=== PATIENT | male | born 1970 | race Caucasian/White ===

== ENCOUNTER 2019-02-13 11:39 | Inpatient (IN) | payer OTHER ==
[~2019-02-13] VITALS: Ht 175.3 cm; Wt 77.1 kg
[2019-02-13 11:41] VITALS: BP 135/75
--- NOTE | 2019-02-13 11:41 | NUR ---
Pt placed in bed 7 by EMS.
--- NOTE | 2019-02-13 12:00 | NUR ---
jacque from home for evaluation of right hip pain radiating down leg since yesterday worsening today, denies trauma hx leukemia
[2019-02-13] MEDS ORDERED: MORPHINE SULFATE 4 MG/ML SYR IVP ONE (12:20)
[2019-02-13] MEDS ORDERED: NACL 0.9% 1,000 ML IV ONE (12:20)
[2019-02-13] MEDS ORDERED: NACL 0.9% 1,000 ML IV SCH (12:20)
[2019-02-13] MEDS ORDERED: ONDANSETRON 4 MG/2 ML VIAL IVP ONE (12:20)
--- NOTE | 2019-02-13 12:45 | NUR ---
Patient taken to CT via gurney.
--- NOTE | 2019-02-13 12:53 | NUR ---
Aron clifton in [facility] - 02/13/19 at 1253 by [facility] Patient being evaluated by physician at bedside.
--- NOTE | 2019-02-13 12:53 | NUR ---
Patient returned from CT.
[2019-02-13 13:14] LABS: BASOPHILS % (AUTO) 0.8 % (0.0-2.0); EOSINOPHILS # (AUTO) 0.1 K/uL (0-0.4); EOSINOPHILS % (AUTO) 1.4 % (0.0-4.0); HEMATOCRIT 43.6 % (36-52); HEMOGLOBIN 14.6 g/dL (12.0-18.0); LYMPHOCYTES # (AUTO) 1.1 K/uL (2.0-11.5); MEAN CORPUSCULAR HEMOGLOBIN 33 pg (27-31); MEAN CORPUSCULAR HGB CONC 33 g/dL (33-37); MEAN CORPUSCULAR VOLUME 97.3 fL (80-94); MONOCYTES # (AUTO) 0.4 K/uL (0.8-1.0); MONOCYTES % (AUTO) 8.2 % (1.7-9.3); NEUTROPHILS # (AUTO) 3.3 K/uL (1.8-7.7); NEUTROPHILS % (AUTO) 66.6 % (42.2-75.2); PLATELET COUNT (AUTO) 90 K/uL (140-450); RED BLOOD CELL COUNT(AUTO) 4.48 MIL/uL (4.20-6.10); RED CELL DISTRIBUTION WIDTH 16.4 % (11.6-13.7); WHITE BLOOD COUNT (AUTO) 4.9 K/uL (4.8-10.8)
[2019-02-13 13:28] LABS: PROTHROMBIN TIME 9.3 secs (10.8-13.4)
[2019-02-13 13:40] LABS: ANION GAP 13.3 (8-16); CARBON DIOXIDE 27.8 mmol/L (21-32); CHLORIDE 103 mmol/L (98-107); CREATININE 0.7 mg/dL (0.7-1.3); GFR ARICAN-AMERICAN 155 mL/min (>90); GLUCOSE 121 mg/dL (74-106); POTASSIUM 4.1 mmol/L (3.5-5.1); SODIUM SERUM 140 mmol/L (136-145); UREA NITROGEN, BLOOD 8 mg/dL (7-18)
[2019-02-13 13:53] LABS: D-DIMER < 100 ng/ml (0-400)
[2019-02-13 13:54] LABS: ALBUMIN 3.2 g/dL (3.4-5.0); ASPARTATE AMINOTRANSFERASE 67 U/L (15-37); TOTAL BILIRUBIN 3.1 mg/dL (0.0-1.0); URIC ACID 4.2 mg/dL (2.6-7.2)
[2019-02-13 13:55] LABS: AMYLASE 26 U/L (25-115); LIPASE 86 U/L (73-393); MAGNESIUM 1.8 mg/dL (1.8-2.4)
[2019-02-13] MEDS: NACL 0.9% 1,000 ML IV SCH (15:07)
[2019-02-13] MEDS ORDERED: ALBUTEROL 0.083% 2.5 MG/3 ML NEBU IH PRN (15:10)
[2019-02-13] MEDS ORDERED: ONDANSETRON 4 MG/2 ML VIAL IVP PRN (15:10)
[2019-02-13] MEDS ORDERED: MORPHINE SULFATE 2 MG/ML SYR IVP PRN (15:10)
[2019-02-13] MEDS ORDERED: MSCON30 PO (15:49)
[2019-02-13] MEDS ORDERED: HYDR2TAB6 PO (15:49)
--- NOTE | 2019-02-13 16:05 | NUR ---
PT ARRIVED ON THE UNIT VIA GURNEY. PT APPEARS STABLE AND IN NO APPARENT DISTRESS. VITALS TAKEN VITALS ARE WITHIN NORMAL LIMITS IVF IS RUNNING AT 100ML/HR. IV SITE IS PATENT AND SHOWS NO SIGNS ON INFLAMMATION OR INFILTRATION. ALL SAFETY MEASURES ARE IN PLACE, WILL CONTINUE TO MONITOR.
--- NOTE | 2019-02-13 16:06 | NUR ---
Patient Admited to telemetry Room 119A. Belongings list completed. Report to HAN Stephen. Pt in stable condition; transfer of care at this time.
[2019-02-13] MEDS: MORPHINE SULFATE 4 MG/ML SYR IVP PRN (16:24)
[2019-02-13 17:09] VITALS: BP 136/86
[2019-02-13] MEDS: LORazepam 2 MG/ML VIAL IVP PRN (18:26)
--- NOTE | 2019-02-13 18:27 | NUR ---
ATIVAN ADMINISTERED PT STATED HES IN ALOT OF PAIN AND THE 4MG MORPHINE WASNT WORKING PT APPEARED VERY RESTLESS AND ANXIOUS. WILL CONTINUE TO MONITOR
--- NOTE | 2019-02-13 19:05 | NUR ---
ENDORSED PT TO PM RN PT APPEARS STABLE AND IN NO APPARENT DISTRESS. ALL SAFTY MEASURES ARE IN PLACE
--- NOTE | 2019-02-13 19:20 | NUR ---
REPORT RECEIVED FROM AM NURSE AT BEDSIDE. PT IN STABLE CONDITION. AAOX4. INTRODUCED SELF TO PT. BOARD UPDATED. NO COMPLAINTS OF PAIN. NO SOB. AFEBRILE. PT IS AMBULATORY. IV SITE L FA 20G RUNNING NS@70ML/HR PATENT AND INTACT. SKIN WARM, DRY, AND INTACT WITH NO OPEN WOUNDS. BED LOCKED IN LOW POSITION. CALL MACIAS WITHIN REACH. SAFETY PRECAUTION IN PLACE. ALL NEEDS MET AT THIS TIME.
[2019-02-13 20:00] VITALS: BP 144/92
[2019-02-13] MEDS: metroNIDAZOLE 500 MG/NS PREMIX 100 ML IV SCH (20:29)
--- NOTE | 2019-02-13 20:29 | NUR ---
REINA HUNG AND RUNNING. PT TOLERATING WELL.
--- NOTE | 2019-02-13 21:45 | NUR ---
PT SLEEPING COMFORTABLY IN BED. NO S/S OF DISTRESS. WILL CONTINUE TO MONITOR.
--- NOTE | 2019-02-13 23:00 | NUR ---
PT SLEEPING COMFORTABLY IN BED. NO S/S OF DISTRESS NOTED. NO COMPLAINTS OF PAIN. NO SOB. AFEBRILE. WILL CONTINUE TO MONITOR.
[2019-02-14] VITALS: BP 139/87
[2019-02-14] MEDS: MORPHINE SULFATE 4 MG/ML SYR IVP PRN ×6 (00:28→21:37)
--- NOTE | 2019-02-14 00:28 | NUR ---
MORPHINE GIVEN FOR 7/10 PAIN. PT TOLERATED WELL.
--- NOTE | 2019-02-14 02:00 | NUR ---
PT SLEEPING COMFORTABLY IN BED. NO S/S OF DISTRESS NOTED. RESPIRATIONS EVEN, UNLABORED, AND WNL. WILL CONTINUE TO MONITOR.
[2019-02-14] MEDS: NACL 0.9% 1,000 ML IV SCH ×2 (03:15→19:43)
[2019-02-14 04:00] VITALS: BP 141/81
[2019-02-14] MEDS: metroNIDAZOLE 500 MG/NS PREMIX 100 ML IV SCH ×3 (04:05→20:27)
--- NOTE | 2019-02-14 04:05 | NUR ---
REINA HUNG AND RUNNING. PT TOLERATING WELL.
--- NOTE | 2019-02-14 04:08 | NUR ---
MORPHINE GIVEN FOR 8/10 HIP PAIN. PT TOLERATED WELL.
--- NOTE | 2019-02-14 05:45 | NUR ---
PT AWAKE AND ALERT IN BED. NO S/S OF DISTRESS NOTED. RESPIRATIONS EVEN, UNLABORED, AND WNL. WILL CONTINUE TO MONITOR.
[2019-02-14 05:56] LABS: BASOPHILS % (AUTO) 0.5 % (0.0-2.0); EOSINOPHILS % (AUTO) 0.9 % (0.0-4.0); HEMATOCRIT 41.1 % (36-52); HEMOGLOBIN 13.8 g/dL (12.0-18.0); LYMPHOCYTES % (AUTO) 25.7 % (20.5-51.1); MEAN CORPUSCULAR HEMOGLOBIN 33 pg (27-31); MEAN CORPUSCULAR HGB CONC 34 g/dL (33-37); MEAN CORPUSCULAR VOLUME 97.1 fL (80-94); MONOCYTES # (AUTO) 0.4 K/uL (0.8-1.0); MONOCYTES % (AUTO) 8.8 % (1.7-9.3); NEUTROPHILS # (AUTO) 2.6 K/uL (1.8-7.7); NEUTROPHILS % (AUTO) 64.1 % (42.2-75.2); RED BLOOD CELL COUNT(AUTO) 4.23 MIL/uL (4.20-6.10); RED CELL DISTRIBUTION WIDTH 16.4 % (11.6-13.7)
[2019-02-14 06:19] LABS: PLATELET COUNT (AUTO) 76 K/uL (140-450)
[2019-02-14 06:41] LABS: ALBUMIN 2.9 g/dL (3.4-5.0); ANION GAP 9.4 (8-16); CARBON DIOXIDE 29.7 mmol/L (21-32); CREATININE 0.7 mg/dL (0.7-1.3); POTASSIUM 4.1 mmol/L (3.5-5.1); TOTAL BILIRUBIN 2.8 mg/dL (0.0-1.0)
--- NOTE | 2019-02-14 07:26 | NUR ---
REPORT GIVEN TO AM NURSE AT BEDSIDE. PT IN STABLE CONDITION.
--- NOTE | 2019-02-14 07:45 | NUR ---
RECEIVED HAND OFF REPORT FROM HOT DIP PLATING SUPERVISOR NURSE PT IS ASLEEP IN BED NOTABLE CHEST RISE AND FALL ALL SAFETY MEASURES ARE IN PLACE AND WILL CONTINUE TO MONITOR.
[2019-02-14 08:00] VITALS: BP 145/82
--- NOTE | 2019-02-14 08:46 | NUR ---
PATIENT HAS BEEN SCREENED AND CATEGORIZED MODERATE NUTRITION RISK. PATIENT WILL BE SEEN WITHIN 3-5 DAYS OF ADMISSION. 02/16/19 02/18/[address]
[2019-02-14 09:30] LABS: HEPATITIS A ANTIBODY IGM Negative (Negative); HEPATITIS B CORE AB TOTAL Negative (Negative); HEPATITIS B SURFACE ANTIBODY Non Reactive (.); HEPATITIS B SURFACE ANTIGEN Negative (Negative)
--- NOTE | 2019-02-14 09:32 | NUR ---
FREQUENT ROUNDING ON PT PT APPEARS STABLE AND IN NO APPEARS STABLE AND IN NO APPARENT DISTRESS.
[2019-02-14] MEDS: LORazepam 2 MG/ML VIAL IVP PRN ×2 (09:36→16:53)
--- NOTE | 2019-02-14 10:26 | NUR ---
SPOKE WITH DR POWERS ABOUT THE PLT BEING 76DR. PRIYA STATED THAT IT IS OK TO STILL GIVE THE LOVENOX
[2019-02-14] MEDS: ENOXAPARIN 40 MG/0.4 ML SYR SUBQ SCH (10:36)
--- NOTE | 2019-02-14 11:39 | NUR ---
ORDER FOR HIGH RISK [facility] FOLLOW UP FAXED TO [facility] AT [phone]. AUTHORIZATION NUMBER [id number] PROVIDED BY [facility].
--- NOTE | 2019-02-14 14:39 | NUR ---
CONTACTED [facility] FOR HIGH RISK CLINIC FOLLOW UP AT [phone]. SPOKE TO KYLAH, SHE PROVIDED ME WITH Tuesday AT 1100. COPY OF APPOINTMENT PROVIDED TO THE PATIENT. INSTRUCTED HIM THAT HE IS NOT ABLE TO KEEP HIS APPOINTMENT, HE HAS TO CONTACT THEM AHEAD OF TIME. PATIENT VERBALIZED UNDERSTANDING.
[2019-02-14 16:00] VITALS: BP 126/64
--- NOTE | 2019-02-14 16:53 | NUR ---
ADMINISTERED ATIVAN PT STATED HE WAS FEELING ANXIOUS AND IRRITABLE. UNABLE TO SCAN PT SCANNER ON WOW 3 NOT SCANNING PT [place].
--- NOTE | 2019-02-14 19:20 | NUR ---
ENDORSED PT TO PM RN PT STABLE
--- NOTE | 2019-02-14 19:29 | NUR ---
RECEIVED BEDSIDE REPORT FROM DAY RN. PT IS SLEEPING COMFORTABLY IN BED. ON ROOM AIR RESPIRATIONS ARE EQUAL AND UNLABORED. SKIN IS INTACT PER RN. IV ON L FA 20G IVF INFUSING PER ORDERS. PT IS AMBULATORY. C/C R HIP PAIN. CALL LIGHT IS WITHIN REACH. FAMILY AT BEDSIDE. WILL ROUND FREQUENTLY.
--- NOTE | 2019-02-14 20:27 | NUR ---
FLAGYL NOW INFUSING PER ORDERS. PT REMAINS ASLEEP. RESPIRATIONS ARE EQUAL AND UNLABORED. CALL LIGHT IS WITHIN REACH.
--- NOTE | 2019-02-14 22:30 | NUR ---
PATIENT IS SLEEPING COMFORTABLY IN BED. RESPIRATIONS ARE EQUAL AND UNLABORED. CALL LIGHT IS WITHIN REACH.
[2019-02-14 23:04] LABS: APPEARANCE,URINE CLEAR (CLEAR); BILIRUBIN,URINE NEGATIVE (NEGATIVE); BLOOD, URINE NEGATIVE (NEGATIVE); COLOR,URINE YELLOW (YELLOW); LEUKOCYTE ESTERASE ,URINE NEGATIVE (NEGATIVE); NITRITE, URINE NEGATIVE (NEGATIVE); PH,URINE 5.5 (5.0-9.0); UGLUCOSE NEGATIVE (NEGATIVE)
[2019-02-14 23:25] LABS: BARBITURATE, URINE NEG. ng/ml (NEG <=200); BENZODIAZEPINE, URINE NEG. ng/mL (NEG <=200); CANNABINOID, URINE NEG. ng/mL (NEG <=50); COCAINE, URINE NEG. ng/mL (NEG <=300); OPIATE, URINE POS. ng/mL (NEG <=2000); PHENCYCLIDINE SCREEN,URINE NEG. ng/mL (NEG <=25)
--- NOTE | 2019-02-15 00:12 | NUR ---
VITAL SIGNS ARE WITHIN NORMAL LIMITS. NO S/S OF DISTRESS. ALL NEEDS MET AT THIS TIME. CALL LIGHT IS WITHIN REACH.
[2019-02-15 00:13] VITALS: BP 149/85
[2019-02-15] MEDS: LORazepam 2 MG/ML VIAL IVP PRN ×2 (00:31→09:15)
--- NOTE | 2019-02-15 00:31 | NUR ---
PATIENT IS AGITATED ADMINISTERED ATIVAN. PT JUST RECEIVED VISITOR ALLOWED TO VISIT FOR FEW MINUTES WILL CONTINUE TO MONITOR.
--- NOTE | 2019-02-15 02:30 | NUR ---
PATIENT IS SLEEPING COMFORTABLY IN BED. SAFETY MEASURES ARE IN PLACE. CALL LIGHT WITHIN REACH.
--- NOTE | 2019-02-15 05:00 | NUR ---
PT IS SLEEPING COMFORTABLY IN BED. CALL LIGHT IS WITHIN REACH.
[2019-02-15] MEDS: metroNIDAZOLE 500 MG/NS PREMIX 100 ML IV SCH ×2 (05:29→12:36)
[2019-02-15 06:17] LABS: ANION GAP 7.4 (8-16); CARBON DIOXIDE 31.5 mmol/L (21-32); CREATININE 0.7 mg/dL (0.7-1.3); POTASSIUM 3.9 mmol/L (3.5-5.1); TOTAL BILIRUBIN 2.9 mg/dL (0.0-1.0)
[2019-02-15] MEDS: MORPHINE SULFATE 4 MG/ML SYR IVP PRN ×3 (06:18→15:28)
[2019-02-15 07:14] LABS: EOSINOPHILS # (AUTO) 0.1 K/uL (0-0.4); EOSINOPHILS % (AUTO) 1.3 % (0.0-4.0); HEMATOCRIT 41.9 % (36-52); HEMOGLOBIN 14.3 g/dL (12.0-18.0); LYMPHOCYTES # (AUTO) 0.9 K/uL (2.0-11.5); LYMPHOCYTES % (AUTO) 20.3 % (20.5-51.1); MEAN CORPUSCULAR HEMOGLOBIN 33 pg (27-31); MEAN CORPUSCULAR HGB CONC 34 g/dL (33-37); MEAN CORPUSCULAR VOLUME 96.3 fL (80-94); MONOCYTES # (AUTO) 0.4 K/uL (0.8-1.0); NEUTROPHILS # (AUTO) 2.8 K/uL (1.8-7.7); NEUTROPHILS % (AUTO) 67.4 % (42.2-75.2); PLATELET COUNT (AUTO) 71 K/uL (140-450); RED BLOOD CELL COUNT(AUTO) 4.35 MIL/uL (4.20-6.10); RED CELL DISTRIBUTION WIDTH 16.7 % (11.6-13.7); WHITE BLOOD COUNT (AUTO) 4.2 K/uL (4.8-10.8)
--- NOTE | 2019-02-15 07:37 | NUR ---
GAVE BEDSIDE REPORT TO DAY RN. PT ENDORSED IN STABLE CONDITION.
--- NOTE | 2019-02-15 07:40 | NUR ---
RECEIVED PT FROM SALES REPRESENTATIVE PUBLIC UTILITIES NURSEARSALAN, PT IS AWAKE AND LYING ON THE BED WITH IC LINE ON THE LEFT FA G.22 WITH NS INFUSING AT 70ML/HR., SIDE RAILS ARE UP AND CALL , LIGHT WITHIN REACH, NO SIGN OF DISTRESS NOTED, VERBALIZED A PAIN RATE OF 6/.10, RESPIRATION IS EVEN AND NO SIGN OF DISTRESS NOTED. WILL MONITOR PT.
[2019-02-15 08:00] VITALS: BP 143/87
[2019-02-15] MEDS: ENOXAPARIN 40 MG/0.4 ML SYR SUBQ SCH (09:00)
--- NOTE | 2019-02-15 09:10 | NUR ---
PT WAS NOT GIVEN LOVENOX DUE TO LOW PLATELET.
--- NOTE | 2019-02-15 09:15 | NUR ---
PT IS SCREAMING AND SHOUTING AND ATIVAN WAS GIVEN VIA IV PUSH, V/S CHECKED DONE AND IS WITHIN LIMITS. WILL MONITOR PT.
[2019-02-15] MEDS: NACL 0.9% 1,000 ML IV SCH (10:01)
--- NOTE | 2019-02-15 11:10 | NUR ---
PT WAS GIVEN MORPHINE NOW FOR PAIN RATE OF 10/10, WILL MONITOR PT.
--- NOTE | 2019-02-15 12:37 | NUR ---
PT WAS GIVEN FLAGYL IVPB NOW. PT IS SLEEPING AND RESPIRATION EVEN. NO SIGN OF DISTRESS NOTED AND WILL MONITOR PT.
--- NOTE | 2019-02-15 14:17 | NUR ---
PT WAS GIVEN ROCEPHIN NOW VIA PIGGYBACK, PT IS SLEEPING, RESPIRATION IS EVEN AND NO SIGN OF DISTRESS NOTED. WILL MONITOR PT.
--- NOTE | 2019-02-15 15:32 | NUR ---
PATIENT COMPLAINS OF SEVERE PAIN ON HIP, SCREAMING. MORPHINE GIVEN AT THIS TIME. WILL CONTINUE TO MONITOR.
--- NOTE | 2019-02-15 16:13 | NUR ---
PT VERBALIZED THAT HE WANTS TO LEAVE AND GO TO [facility], WILL INFORM MD.
--- NOTE | 2019-02-15 16:15 | NUR ---
JASON TO DR. POWERS AND INFORMED THAT PT WANTS TO LEAVE AMA AND GO TO [facility] AND SAID THAT IS WHERE HE USUALLY GOES.
--- NOTE | 2019-02-15 16:25 | NUR ---
PT LEFT AMA ACCOMPANIED BY GIRLFRIEND, DR. POWERS WAS INFORMED OF THE PT'S LEAVING AMA. PT VERBALIZED THAT HE WANTS TO GO TO [facility] AND THAT IS WHERE THE HOSPITAL THAT HE USUALLY GOES, GIRLFRIEND CONFIRMED THE PT'S STATEMENT. PT WAS ADVISED OF THE CONSEQUENCES OF LEAVING AMA AND VERBALIZED UNDERSTANDING.
[2019-02-16 12:07] LABS: ANTI-NUCLEAR ANTIBODY TITER Negative (.)
== END 2019-02-15 16:25 | disposition left against medical advice (07) | DRG 280 ==
LOC: MED 11:39 → MTU 15:10
PROVIDERS: ADMIT Internal Medicine Pulmonary Disease; ATTEND Internal Medicine Pulmonary Disease
DX: K70.30 Alcoholic cirrhosis of liver without ascites (principal); D69.6 Thrombocytopenia, unspecified; K76.6 Portal hypertension; K80.51 Calculus of bile duct without cholangitis or cholecystitis with obstruction; E44.1 Mild protein-calorie malnutrition; A09 Infectious gastroenteritis and colitis, unspecified; Z53.21 Procedure and treatment not carried out due to patient leaving prior to being seen by health care provider; Z60.2 Problems related to living alone; Z85.6 Personal history of leukemia; M16.10 Unilateral primary osteoarthritis, unspecified hip; F10.10 Alcohol abuse, uncomplicated
CPT/HCPCS: 36415; 76705; 80053; 80305; 81003; 82150; 83516; 83690; 83735; 84550; 85025; 85379; 85610; 85651; 86038; 86140; 86704; 86706; 86708; 86709; 86803; 87340; 96361; 96374; 96375; 99285; G0482; J0696; J1650; J2060; J2270; J2405; J3490; J7030; J7060; Q0092

== ENCOUNTER 2019-03-01 19:54 | Emergency (ER) | payer OTHER ==
[~2019-03-01] VITALS: Ht 175.3 cm; Wt 79.8 kg
[~2019-03-01 19:54] MED LIST: HYDR2TAB6 PO; MSCON30 PO
[2019-03-01 19:58] VITALS: BP 164/99
--- NOTE | 2019-03-01 20:01 | NUR ---
PT SENT TO LOBBY TO WAIT FOR AVAILABLE BED.
--- NOTE | 2019-03-01 20:15 | NUR ---
RIGHT LEG PAIN, STATES RIGHT HIP ALL THE WAY DOWN RIGHT LEG TO HIS TOES; PT STATES HE WAS HERE LAST WEEK FOR SAME S/SX AND STATES IT HAS BEEN HURTING SINCE THEN. PATIENT STATES PAIN OF 10/10 AT THIS TIME; VSS; PATIENT POSITIONED FOR COMFORT; HOB ELEVATED; BEDRAILS UP X1; BED DOWN. ER MD MADE AWARE OF PT STATUS.
--- NOTE | 2019-03-01 20:27 | NUR ---
PT TAKEN TO BED 8
[2019-03-01] MEDS ORDERED: KETOROLAC 60 MG/2 ML VIAL IM ONE (20:40)
[2019-03-01] MEDS ORDERED: HYDROcodone/APAP 7.5/325 MG 1 TAB PO ONE (21:10)
[2019-03-01 21:45] VITALS: BP 163/87
--- NOTE | 2019-03-01 21:45 | NUR ---
Patient discharged with v/s stable. Written and verbal after care instructions given and explained. Patient alert, oriented and verbalized understanding of instructions. Ambulatory with steady gait. All questions addressed prior to discharge. ID band removed. Patient advised to follow up with PMD. Rx of DICLOFENAC given. Patient educated on indication of medication including possible reaction and side effects. Opportunity to ask questions provided and answered.
== END 2019-03-01 21:45 | disposition home or self-care (01) ==
LOC: MED 19:54
DX: M25.551 Pain in right hip (principal); G89.29 Other chronic pain; F15.10 Other stimulant abuse, uncomplicated; Z79.1 Long term (current) use of non-steroidal anti-inflammatories (NSAID); Z79.891 Long term (current) use of opiate analgesic; Z85.6 Personal history of leukemia
CPT/HCPCS: 96372; 99283; J1885

== ENCOUNTER 2020-07-18 12:14 | Emergency (ER) | payer OTHER ==
[~2020-07-18] VITALS: Ht 170.2 cm; Wt 66.7 kg
--- NOTE | 2020-07-18 12:14 | NUR ---
Patient BIBA ALS accompanied by Tg BENSON, transferred to bed 10. RN evaluating patient at bedside.
[2020-07-18] MEDS ORDERED: PANTOPRAZOLE 40 MG INJ VIAL IVP ONE (12:20)
[2020-07-18] MEDS ORDERED: OCTREOTIDE ACETATE 1.25 MG in NACL 0.9% 250 ML IV SCH (12:20)
[2020-07-18] MEDS ORDERED: fentaNYL citrate 0.05 MG/ML VIAL IVP ONE (12:20)
[2020-07-18] MEDS ORDERED: NACL 0.9% 1,000 ML IV SCH ×2 (12:20→18:40)
[2020-07-18] MEDS ORDERED: ONDANSETRON 4 MG/2 ML VIAL IVP ONE (12:20)
--- NOTE | 2020-07-18 12:30 | NUR ---
Bilateral IVs to left and right AC 18G, good blood return. Blood cultures and labs drawn at this time . Walked to lab.
[2020-07-18 12:39] VITALS: BP 105/51
[2020-07-18] MEDS ORDERED: cefTRIAXone 1,000 MG VIAL ONE (12:53)
--- NOTE | 2020-07-18 13:00 | NUR ---
Collected COVID terri and novel swabs, walked to lab.
--- NOTE | 2020-07-18 13:04 | NUR ---
Pt taken via gurney to CT.
--- NOTE | 2020-07-18 13:27 | NUR ---
Pt brought back via gurney to ER bed 10.
[2020-07-18 13:45] LABS: ALBUMIN 1.7 g/dL (3.4-5.0); ANION GAP 23.2 (8-16); CARBON DIOXIDE 17.9 mmol/L (21-32); POTASSIUM 4.1 mmol/L (3.5-5.1); TOTAL BILIRUBIN 1.1 mg/dL (0.0-1.0)
[2020-07-18 13:56] LABS: PROTHROMBIN TIME 14.2 secs (10.8-13.4)
[2020-07-18] MEDS ORDERED: NACL 0.9% 1,000 ML IV ONE (14:10)
[2020-07-18 14:13] LABS: MEAN CORPUSCULAR HEMOGLOBIN 22 pg (27-31)
[2020-07-18 14:28] LABS: MEAN CORPUSCULAR HGB CONC 26 g/dL (33-37); MEAN CORPUSCULAR VOLUME 85.8 fL (80-94); PLATELET COUNT (AUTO) 461 K/uL (140-450); RED BLOOD CELL COUNT(AUTO) 2.02 MIL/uL (4.20-6.10); RED CELL DISTRIBUTION WIDTH 20.8 % (11.6-13.7)
[2020-07-18 14:32] LABS: HEMATOCRIT 17.3 % (36-52); HEMOGLOBIN 4.5 g/dL (12.0-18.0); WHITE BLOOD COUNT (AUTO) 134.4 K/uL (4.8-10.8)
--- NOTE | 2020-07-18 14:35 | NUR ---
Received critical lab values WBC 134.4, Hgb 4.5, Hgb 17.3. Dr. Webster made aware.
[2020-07-18 14:37] LABS: EOSINOPHILS % (MANUAL) 2 % (0-4); LYMPHOCYTES % (MANUAL) 10 % (20-46); METAMYELOCYTES % 3 % (0-0); MONOCYTES % (MANUAL) 8 % (5-12); MYELOCYTES % 7 % (0-0)
[2020-07-18 14:38] LABS: CORRECTED WHITE BLOOD COUNT 116.9 K/uL (4.5-11.0)
[2020-07-18] MEDS ORDERED: VANCOMYCIN 1,000 MG in DEXTROSE 5% 250 ML IV ONE (14:40)
--- NOTE | 2020-07-18 14:43 | NUR ---
Pt speaking full sentences, A&OX4, changed into gown, provided warm blanket.
--- NOTE | 2020-07-18 14:44 | NUR ---
Pt states he feels like "throwing up", provided with emesis bag. 1 large dark red thick output about 100mL.
--- NOTE | 2020-07-18 14:52 | NUR ---
Pt ALOC, incomprehensible speech, pt begins vomiting dark red, O2 sat 62% Dr. Webster notified STAT.
[2020-07-18] MEDS ORDERED: INTUBATION KIT MC ONE (14:55)
--- NOTE | 2020-07-18 14:57 | NUR ---
Dr. Webster and charge nurse at bedside, RT paged, preparing for intubation per MD orders at this time.
--- NOTE | 2020-07-18 14:57 | NUR ---
Dr. Webster, RT and RN at bedside for endotracheal intubation.
--- NOTE | 2020-07-18 15:01 | NUR ---
Crash cart at pt bedside, Dr. Webster orders 2mL epi IVP stat, BP 82/37.
--- NOTE | 2020-07-18 15:09 | NUR ---
Per Dr. Webster 20mg Etomidate IVP followed by 80mg Rocuronium IVP to left AC. NS bolus wide open to right AC. 2mL epinephrine at 1511 IVP BP at 80/41 per MD order.
--- NOTE | 2020-07-18 15:12 | NUR ---
OG tube in by Dr. Webster, suctioned 1,500 output dark blood at 1517. 2nd canister 1,000 output dark blood at 1537.
[2020-07-18] MEDS ORDERED: NOREPINEPHRINE 4 MG in DEXTROSE 5% 250 ML IV ONE (15:25)
[2020-07-18] MEDS ORDERED: MIDAZOLAM MDV 50 MG in NACL 0.9% 40 ML IV PRN (15:25)
[2020-07-18] MEDS ORDERED: TRANEXAMIC ACID 1,000 MG in NACL 0.9% 50 ML IV STA (15:25)
[2020-07-18 15:27] VITALS: BP 89/41
--- NOTE | 2020-07-18 15:38 | NUR ---
Pt shaved for right central line to be placed by Dr. Webster. Placed with sterile technique, U/S guided.
[2020-07-18] MEDS ORDERED: MIDAZOLAM MDV 100 MG in NACL 0.9% 80 ML IV PRN (15:40)
[2020-07-18] MEDS ORDERED: ETOMIDATE 20 MG/10 ML VIAL IVP ONE (16:25)
[2020-07-18] MEDS ORDERED: ROCURONIUM 50 MG/5 ML VIAL IV ONE (16:25)
--- NOTE | 2020-07-18 16:26 | NUR ---
XR at pt bedside.
--- NOTE | 2020-07-18 16:30 | NUR ---
O-NEG wide open 1 unit PRBC started 1525. O-NEG wide open 2nd unit PRBC started at 1616. With NS 500mL to the Right AC.
--- NOTE | 2020-07-18 16:32 | NUR ---
master control technician at bedside for post-intubation and central line insertion CXR.
--- NOTE | 2020-07-18 16:47 | NUR ---
Nor-epi increased 2mcg/hr for a total of 7mcg/hr. BP 85/39.
--- NOTE | 2020-07-18 16:51 | NUR ---
*CRITICAL LAB RESULTS8: Lactic Acid level 9.0. Dr. Webster notified
--- NOTE | 2020-07-18 17:00 | NUR ---
2 units of O-NEG PRBC in at 1700. Dr. Webster ordered 2 units of O-NEG, waiting for lab to supervisor opening and picking.
--- NOTE | 2020-07-18 17:38 | NUR ---
Nor-epi increased 2mcg/hr for a total of 9mcg/hr. BP 79/34. MAP 49.
--- NOTE | 2020-07-18 18:00 | NUR ---
Started 3rd unit of A-NEG PRBC in at 1800 at 60mL/hr. Baseline vitals taken at this time.
--- NOTE | 2020-07-18 18:11 | NUR ---
Dr. Webster at bedside suctioned 800 output dark blood via OG tube.
--- NOTE | 2020-07-18 18:15 | NUR ---
Vitals taken at this time, VSS, increased rate to 200mL/hr.
--- NOTE | 2020-07-18 18:16 | NUR ---
Dr. Webster at bedside, Nor-epi increased 2mcg/hr for a total of 11mcg/hr. BP 69/17. MAP 41.
[2020-07-18] MEDS ORDERED: DOPPLER MC ONE (18:23)
--- NOTE | 2020-07-18 18:24 | NUR ---
Dr. Webster at bedside, Nor-epi increased 2mcg/hr for a total of 13mcg/hr. BP 65/29. MAP 39.
--- NOTE | 2020-07-18 18:26 | NUR ---
Pulse palpable at jugular and femoral sites, +1.
--- NOTE | 2020-07-18 18:26 | NUR ---
RT at bedside 1826. CPR initiated at 1831, see code blue sheet for detailed information.
--- NOTE | 2020-07-18 18:31 | NUR ---
Per Dr. Eleanor siddiqui to give emergency 3rd and 4th unit of PRBS.
--- NOTE | 2020-07-18 18:34 | NUR ---
CPR initiated by [facility] staff. Dr. Webster at bedside.
[2020-07-18] MEDS ORDERED: KCL 20 MEQ/WATER INJ PREMIX 200 ML IV PRN (18:40)
[2020-07-18] MEDS ORDERED: MAG SULF 2000 MG/WATER PREMIX 50 ML IV PRN (18:40)
[2020-07-18] MEDS ORDERED: ONDANSETRON 4 MG/2 ML VIAL IVP PRN (18:40)
--- NOTE | 2020-07-18 18:40 | NUR ---
4th unit PRBS hung, infused rapidly per Dr. Webster orders.
--- NOTE | 2020-07-18 18:51 | NUR ---
ROSC achieved. Dr. Webster at pt bedside.
--- NOTE | 2020-07-18 18:52 | NUR ---
Nor-epi increased to 18mcg/hr per Dr. Webster's orders.
--- NOTE | 2020-07-18 19:05 | NUR ---
Dr. Webster at bedside, RT suctioned 250CC dark red blood from OGT.
--- NOTE | 2020-07-18 19:24 | NUR ---
LEVOPHED INCREASED 20MCG/ MIN
--- NOTE | 2020-07-18 19:28 | NUR ---
Report given to HAN Lr. Transfered all care over at this time.
[2020-07-18] MEDS ORDERED: AZITHROMYCIN 500 MG in DEXTROSE 5% 250 ML IV SCH (19:30)
--- NOTE | 2020-07-18 19:37 | NUR ---
PT CONDITION REMAINS CRITICAL . BP LOW, LEVOPHED INCREASED TO 30MCG/MIN. DR BARKER HERE TO EXAMINE PT.
--- NOTE | 2020-07-18 19:45 | NUR ---
NILAM TUBE INSERTED PER DR. BARKER. ESOPHAGEAL BALLOON INFLATED. NO BLEEDING NOTED AT THIS TIME. PT CONDITION REMAINS POOR.
[2020-07-18 19:50] VITALS: BP 82/35
[2020-07-18 19:55] VITALS: BP_DIAS 30
[2020-07-18] MEDS ORDERED: SODIUM BICARBONATE 8.4% 100 MEQ in NACL 0.9% 1,000 ML IV SCH (19:55)
[2020-07-18] MEDS ORDERED: DOPamine 400 MG/D5W PREMIX 250 ML IV ONE (19:55)
[2020-07-18] MEDS ORDERED: AZITHROMYCIN 500 MG INJ VIAL IV ONE (20:04)
--- NOTE | 2020-07-18 20:09 | NUR ---
1826 received patient on vent and patients heart rate started to drop. cpr was initiated. patient on 100% fio2.acls drugs given dr at bed side
--- NOTE | 2020-07-18 20:10 | NUR ---
DOPAMINE BEGUN AT 5MCG/KG/MIN
[2020-07-18 20:25] VITALS: BP_SYST 0
--- NOTE | 2020-07-18 20:25 | NUR ---
pt pulseless, asystole cpr begun. code blue initiated at this time. see code blue record. code team, Dr. Ghotra at bedside.
--- NOTE | 2020-07-18 20:30 | NUR ---
COMPRESSIONS STARTED Addendum: 07/18/20 at 2 by [facility] CPR INITIATED
[2020-07-18] MEDS ORDERED: EPINEPHrine PFS 0.1 MG/ML SYR IVP ONE ×2 (20:33)
[2020-07-18] MEDS ORDERED: SODIUM BICARBONATE 8.4% PFS 50 MEQ/50 ML SYR IVP ONE (20:39)
--- NOTE | 2020-07-18 20:55 | NUR ---
patient off vent due to expiring
--- NOTE | 2020-07-18 21:00 | NUR ---
CALL TO NEONATAL SURGEON OFFICE . RETURN CALL PENDING
--- NOTE | 2020-07-18 21:09 | NUR ---
[facility] CONTACTED, SPOKE WITH BRIE. CASE # [id number]. PT RELEASED DUE TO PMH
--- NOTE | 2020-07-18 23:50 | NUR ---
CALL RETURNED FROM [employer]OL [employer]ESS[employer]. SPOKE WITH DEREK HEALY. PT IS NOT REPORTABLE, BODY IS RELEASED.
--- NOTE | 2020-07-19 02:41 | NUR ---
POST MORTEM CARE IS COMPLETE. PT TO BE TRANSPORTED [place] [facility] FAMILY HAS NOT PROVIDED INFORMATION REGARDING MOTUARY
--- NOTE | 2020-07-19 03:20 | NUR ---
[facility] [facility]
--- NOTE | 2020-07-21 10:33 | NUR ---
Aron clifton in ED - 07/29/20 at 1025 by AZALIA LATE ENTRY -- NS COMPLETED AT 1538, DEXTROSE 5% AT 1900, SODIUM BICARBONATE AT 0126, AND DOPAMINE AT 0500.
--- NOTE | 2020-07-24 10:16 | NUR ---
Aron clifton in [facility] - 07/29/20 at 1023 by AZALIA LATE ENTRY -- CT ENDED 0320 07/18
--- NOTE | 2020-07-29 10:25 | NUR ---
LATE ENTRY -- NS COMPLETED AT 1538, DEXTROSE 5% AT 1900, SODIUM BICARBONATE AT 0126, AND DOPAMINE AT 2048. VERSED AND NOREPINEPHRINE ALSO COMPLETED AT 204807/18/20.
== END 2020-07-18 20:49 ==
LOC: MED 12:14
DX: A41.89 Other specified sepsis (principal); G93.41 Metabolic encephalopathy; J18.9 Pneumonia, unspecified organism; D64.9 Anemia, unspecified; R10.0 Acute abdomen; K92.2 Gastrointestinal hemorrhage, unspecified; Z20.828 Contact with and (suspected) exposure to other viral communicable diseases
CPT/HCPCS: 31500; 36415; 36556; 36600; 71045; 74176; 76937; 80053; 82140; 82803; 83605; 85025; 85610; 85730; 86886; 86900; 86901; 86920; 87040; 87426; 93005; 96361; 96365; 96366; 96367; 96368; 96375; 99291; 99292; C9113; J0171; J0456; J0696; J1265; J2250; J2354; J2405; J3010; J3490; J7030; J7060; P9016; U0003; 36569; 96372